=== PATIENT | male | born 1985 | race African-American/Black ===

== ENCOUNTER 2021-01-21 09:20 | Emergency (ER) | payer OTHER, MEDICAID ==
[~2021-01-21] VITALS: Ht 165.1 cm; Wt 66.0 kg
[2021-01-21] MEDS ORDERED: SODIUM CHLORIDE 0.9% 1,000 ML IV STA (09:45)
[2021-01-21] MEDS ORDERED: CEFTRIAXONE 1 G PREMIX 50 ML IV SCH (11:00)
[2021-01-21] MEDS ORDERED: KETOROLAC 15MG/ML VIAL IV ONE (11:00)
[2021-01-21] MEDS ORDERED: MIDAZOLAM HCL 2 MG/2 ML VIAL IV ONE ×2 (11:00→16:30)
[2021-01-21 11:23] LABS: HEMATOCRIT. 45.7 % (42.0-52.0); HEMOGLOBIN. 14.9 g/dL (14.0-18.0); MEAN CORPUSCULAR HEMOGLOBIN 33.7 pg (28.0-32.0); MEAN CORPUSCULAR VOLUME 103.7 fL (80.0-94.0); RED BLOOD CELL COUNT 4.41 mill/uL (4.7-6.1); RED CELL DISTRIBUTION WIDTH 15.8 % (11.6-14.6)
[2021-01-21 11:30] LABS: CHLORIDE 103 mEq/L (98-107)
[2021-01-21 11:51] LABS: PLATELET 56 x1000/uL (130-400)
[2021-01-21 11:58] LABS: PLATELET ESTIMATE DECREASED
[2021-01-21] MEDS ORDERED: IOHEXOL-350 100 ML BOTTLE ONE (14:39)
[2021-01-21 18:38] VITALS: BP 90/39
== END 2021-01-21 18:54 | disposition short-term general hospital (02) ==
LOC: ER 09:20 → CANBEDREQ 19:39
DX: I45.2 Bifascicular block (principal); R55 Syncope and collapse; R79.1 Abnormal coagulation profile; K31.0 Acute dilatation of stomach; K76.6 Portal hypertension; R62.50 Unspecified lack of expected normal physiological development in childhood; Z91.81 History of falling; R11.10 Vomiting, unspecified
CPT/HCPCS: 36415; 71045; 71275; 80048; 84484; 85025; 85379; 87804; 93005; 96361; 96374; 96375; 96376; 99285; J1885; J2250; J7030; Q9967